=== PATIENT | male | born 1945 | race Hispanic/Latino ===

== ENCOUNTER 2018-02-15 17:18 | Inpatient (IN) | payer MEDICARE ==
--- NOTE | 2018-02-15 17:33 | ED PDOC ---
Arrival/HPI - General Historian: Patient - History of Present Illness Narrative History of Present Illness (Text): 02/15/18 17:31 72yo male with pmhx of hypertension, COPD bib EMS for complaint of right leg pain s/p trauma. Patient reports fall last week, while crossing the street and again today. States he fell while leaving the bathroom today, because of the pain on his right leg. He denies hitting his head, LOC, nausea, back pain, focal weakness, dizziness, visual changes, any other complaint. <Rosa Pugh A - Last Filed: 02/16/18 19:16> <Jhonatan Juarez - Last Filed: 02/17/18 15:25> - General Time Seen by Provider: 02/15/18 17:25 Past Medical History - Provider Review Nursing Documentation Reviewed: Yes - Infectious Disease Hx of Infectious Diseases: None - Cardiac Hx Hypertension: Yes - Pulmonary Hx Chronic Obstructive Pulmonary Disease (COPD): Yes - Integumentary Other/Comment: hx of cellulitis b/l legs, left heel brown dry 2cm x 1,5cm callous, right ball of foot 2 callouses 1cm round, dry skin to feet, hard thick dirty toenails, large abrasion to right foreheas and smaller abrasions to toop of head - Musculoskeletal/Rheumatological Hx Arthritis: Yes - Psychiatric Hx Depression: No Hx Emotional Abuse: No Hx Physical Abuse: No Hx Substance Use: No - Anesthesia Hx Anesthesia Reactions: No - Suicidal Assessment Feels Threatened In Home Enviroment: No <KeatonHappiness A - Last Filed: 02/16/18 19:16> Family/Social History - Physician Review Nursing Documentation Reviewed: Yes Family/Social History: Unknown Family HX Smoking Status: Current Some Days Smoker Hx Alcohol Use: No Hx Substance Use: No Hx Substance Use Treatment: No <uHappiness A - Last Filed: 02/16/18 19:16> Allergies/Home Meds <KeatonHappiness A - Last Filed: 02/16/18 19:16> <Jhonatan Juarez - Last Filed: 02/17/18 15:25> Allergies/Adverse Reactions: Allergies No Known Allergies Allergy (Verified 10/10/11 11:55) Home Medications: Home Meds Medication Instructions Recorded Confirmed Aspirin [Aspir 81] 81 mg PO DAILY 10/10/11 02/16/18 Review of Systems - Physician Review All systems were reviewed & negative as marked: Yes - Review of Systems Constitutional: Normal Eyes: Normal ENT: Normal Respiratory: Normal Cardiovascular: Normal Gastrointestinal: Normal Genitourinary Male: Normal Musculoskeletal: Arthralgias (Right leg pain) Skin: Normal Neurological: Normal Endocrine: Normal Hemo/Lymphatic: Normal Psychiatric: Normal <Diru,Happiness A - Last Filed: 02/16/18 19:16> Physical Exam Vital Signs Reviewed: Yes Temperature: Afebrile Blood Pressure: Normal Pulse: Regular Respiratory Rate: Normal Appearance: Positive for: Well-Appearing, Non-Toxic, Comfortable Pain Distress: None Mental Status: Positive for: Alert and Oriented X 3 - Systems Exam Head: Present: Atraumatic, Normocephalic Pupils: Present: PERRL Extroacular Muscles: Present: EOMI Conjunctiva: Present: Normal Mouth: Present: Moist Mucous Membranes Neck: Present: Normal Range of Motion Respiratory/Chest: Present: Clear to Auscultation, Good Air Exchange. No: Respiratory Distress, Accessory Muscle Use Cardiovascular: Present: Regular Rate and Rhythm, Normal S1, S2. No: Murmurs Abdomen: No: Tenderness, Distention, Peritoneal Signs Back: Present: Normal Inspection Upper Extremity: Present: Normal Inspection. No: Cyanosis, Edema Lower Extremity: Present: NORMAL PULSES, Tenderness (Proximal right thigh), Other (Right leg externally rotated). No: Edema, Normal ROM (Limited on flexion/abduction/adduction of right hip secondary to pain), Swelling Neurological: Present: GCS=15, CN II-XII Intact, Speech Normal Skin: Present: Warm, Dry, Normal Color. No: Rashes Psychiatric: Present: Alert, Oriented x 3, Normal Insight, Normal Concentration <Diru,Happiness A - Last Filed: 02/16/18 19:16> Vital Signs Temp Pulse Resp BP Pulse Ox 02/15/18 23:01 89 18 145/85 97 02/15/18 17:31 98.9 F 100 H 18 100 <Jhonatan Juarez L - Last Filed: 02/17/18 15:25> Medical Decision Making ED Course and Treatment: 02/15/18 17:34 72yo male bib EMS for right leg pain. His pain was controlled in emergency department with medication. B/L hip xray Right femur xray Head CT Tramadol will reassess 02/16/18 19:12 Hip xray - Right femoral neck fracture with mild displacement. Head CT - No acute finding Lab was ordered secondary to above finding for Surgical fixation Case was DW Dr. Fuentes and pt was admitted to her service. She requested Dr. Ahumada consult. Case was DW Dr. Ahumada and he states he will see pt on Saturday and Dr. fuentes was aware of this All result and plan was DW the pt and he agreed. <Diru,Happiness A - Last Filed: 02/16/18 19:16> - RAD Interpretation Radiology Orders: 02/15/18 17:48 FEMUR 1 VIEW RT [RAD] Stat Hip Bilateral [HIP MIN 3V W/ PELVIS RAIN] [RAD] Stat 02/15/18 17:49 HEAD W/O CONTRAST [CT] Stat 02/15/18 21:25 CHEST ONE VIEW [RAD] Stat - Medication Orders Current Medication Orders: Acetaminophen (Tylenol 325mg Tab) 650 mg PO Q6H PRN PRN Reason: Fever >100.4 F Albuterol/Ipratropium (Duoneb 3 Mg/0.5 Mg (3 Ml) Ud) 3 ml IH [id number] MYNOR Last Admin: 02/17/18 14:14 Dose: 3 ml Docusate Sodium (Colace) 100 mg PO BID MYNOR Heparin Sodium (Porcine) (Heparin) 5,000 units SC Q12 [facility]; Protocol Last Admin: 02/16/18 21:21 Dose: 5,000 units Subcutaneous Administrations Document 02/16/18 21:21 MP (Rec: 02/16/18 21:21 [id number]) Injection Site MAR Injection Site Left Abdomen Charges for Administration # of Subcutaneous Administrations 1 Metoprolol Tartrate (Lopressor) 12.5 mg PO BRKDIN [facility] Last Admin: 02/17/18 06:48 Dose: 12.5 mg Morphine Sulfate (Morphine) 4 mg IVP Q6H PRN PRN Reason: Pain, severe (8-10) Last Admin: 02/17/18 12:07 Dose: 4 mg MAR Pain Assessment Document 02/17/18 12:07 ANNE (Rec: 02/17/18 12:08 ANNE [id number]) Pain Reassessment Is this a pain reassessment? No Presence of Pain Presence of Pain Yes Pain Scale Used Protocol: [facility] Pain Scale Used Numeric Location Left, Right or Bilateral Right Pain Location Body Site Hip Description Description Intermittent Intensity of Pain at present 9 Aggravating Factors Exercise/Activity IVP Administration Document 02/17/18 12:07 ANNE (Rec: 02/17/18 12:08 JA [id number]) Charges for Administration # of IVP Administrations 1 Ondansetron HCl (Zofran Inj) 4 mg IVP Q6H PRN PRN Reason: Nausea/Vomiting Discontinued Medications Albuterol/Ipratropium (Duoneb 3 Mg/0.5 Mg (3 Ml) Ud) 3 ml IH STAT STA Stop: 02/15/18 21:37 Last Admin: 02/15/18 21:50 Dose: 3 ml Morphine Sulfate (Morphine) 3 mg IVP STAT STA Stop: 02/15/18 21:37 Last Admin: 02/15/18 21:50 Dose: 3 mg MAR Pain Assessment Document 02/15/18 21:50 JOL (Rec: 02/15/18 22:26 JOL [id number]) Pain Reassessment Is this a pain reassessment? No Sleep Is patient sleeping during reassessment? No Presence of Pain Presence of Pain Yes Pain Scale Used Protocol: [facility] Pain Scale Used Numeric Description Intensity of Pain at present 7 IVP Administration Document 02/15/18 21:50 JOL (Rec: 02/15/18 22:26 JOL [id number]) Charges for Administration # of IVP Administrations 1 Morphine Sulfate (Morphine) 3 mg IVP STAT STA Stop: 02/16/18 00:04 Last Admin: 02/16/18 00:14 Dose: 3 mg MAR Pain Assessment Document 02/16/18 00:14 MAD (Rec: 02/16/18 00:15 MAD [id number]) Pain Reassessment Is this a pain reassessment? Yes Presence of Pain Presence of Pain Yes Pain Scale Used Protocol: [facility] Pain Scale Used Numeric Location Left, Right or Bilateral Right Pain Location Body Site Hip Description Description Constant Intensity of Pain at present 8 Acceptable Level of Pain 3 Pain Behavior Moaning Restlessness Alleviating Factors/Management Medication Techniques Alleviating Factors Medication IVP Administration Document 02/16/18 00:14 MAD (Rec: 02/16/18 00:15 MAD [id number]) Charges for Administration # of IVP Administrations 1 Re-Assess: MAR Pain Assessment Document 02/16/18 01:14 [facility] (Rec: 02/16/18 03:58 MAD [id number]) Pain Reassessment Is this a pain reassessment? Yes Sleep Is patient sleeping during reassessment? Yes Morphine Sulfate (Morphine) 2 mg IVP Q6H PRN PRN Reason: severe pain Last Admin: 02/16/18 13:30 Dose: 2 mg MAR Pain Assessment Document 02/16/18 13:30 MCV (Rec: 02/16/18 13:31 MCV [id number]) Pain Reassessment Is this a pain reassessment? No Presence of Pain Presence of Pain Yes Pain Scale Used Protocol: PSCALES Pain Scale Used Numeric Location Left, Right or Bilateral Bilateral Pain Location Body Site Hip Description Description Constant IVP Administration Document 02/16/18 13:30 MCV (Rec: 02/16/18 13:31 MCV [id number]) Charges for Administration # of IVP Administrations 1 Tramadol HCl (Ultram) 50 mg PO STAT STA Stop: 02/15/18 17:50 Last Admin: 02/16/18 20:35 Dose: Not Given Non-Admin Reason: not done from previous shift <Jhonatan Juarez - Last Filed: 02/17/18 15:25> - PA / SHIP PURSER / Resident Statement / has reviewed & agrees with the documentation as recorded. <Jhonatan Juarez - Last Filed: 02/17/18 15:25> Disposition/Present on Arrival - Present on Arrival Any Indicators Present on Arrival: No History of DVT/PE: No History of Uncontrolled Diabetes: No Urinary Catheter: No History Surgical Site Infection Following: None - Disposition Have Diagnosis and Disposition been Completed?: Yes Disposition Time: 20:40 Patient Plan: Admission <Rosa Pugh - Last Filed: 02/16/18 19:16> <Jhonatan Juarez - Last Filed: 02/17/18 15:25> - Disposition Diagnosis: Hip fracture Disposition: HOSPITALIZED Patient Problems: Current Active Problems Problem Status Onset Hip fracture Acute Condition: STABLE
[2018-02-15 17:59] VITALS: BMI 17.2
[2018-02-15] MEDS ORDERED: Morphine 4 mg/ml ISec IVP STA (21:36)
[2018-02-15] MEDS ORDERED: Albuterol-Ipratrop 3 mg / 0.5 (3 ml) UD IH STA (21:36)
[2018-02-15] MEDS ORDERED: Morphine 4 mg/ml ISec ONE (21:39)
[2018-02-15 22:38] LABS: BASO # 0.03 K/mm3 (0.0-2.0); BASO % 0.5 % (0.0-3.0); EOS # 0.2 (0.0-0.7); EOS % 3.8 % (1.5-5.0); GRAN # 4.12 (1.4-6.5); GRAN % 68.2 % (50.0-68.0); HEMOGLOBIN 13.4 g/dL (14.0-18.0); LYMPH # 1.1 (1.2-3.4); LYMPH % 18.7 % (22.0-35.0); MEAN CELL VOLUME 88.5 fl (80.0-105.0); MEAN CORPUSCULAR HEMOGLOBIN 29.5 pg (25.0-35.0); MEAN CORPUSCULAR HGB CONC 33.3 g/dl (31.0-37.0); MEAN PLATELET VOLUME 10.2 fl (7.0-11.0); MONO # 0.5 (0.1-0.6); MONO % 8.8 % (1.0-6.0); RBC 4.54 10^6/uL (3.5-6.1)
[2018-02-15 22:45] LABS: PARTIAL THROMBOPLASTIN TIME 30.4 Seconds (25.1-36.5); PROTHROMBIN TIME 11.4 SECONDS (9.4-12.5)
[2018-02-16] MEDS ORDERED: Morphine 4 mg/ml ISec IVP STA (00:03)
--- NOTE | 2018-02-16 09:37 | CT ---
Date of service: 02/15/2018 PROCEDURE: CT HEAD WITHOUT CONTRAST. HISTORY: s/p trauma COMPARISON: None available. TECHNIQUE: Axial computed tomography images were obtained through the head/brain without intravenous contrast. Radiation dose: Total exam DLP = 1119 mGy-cm. This CT exam was performed using one or more of the following dose reduction techniques: Automated exposure control, adjustment of the mA and/or kV according to patient size, and/or use of iterative reconstruction technique. FINDINGS: HEMORRHAGE: No intracranial hemorrhage. BRAIN: No mass effect or edema. Chronic microvascular changes. Moderate atrophy. VENTRICLES: Unremarkable. No hydrocephalus. CALVARIUM: Unremarkable. PARANASAL SINUSES: Unremarkable as visualized. No significant inflammatory changes. MASTOID AIR CELLS: Unremarkable as visualized. No inflammatory changes. OTHER FINDINGS: The report concurs with the preliminary report IMPRESSION: No acute intracranial findings
--- NOTE | 2018-02-16 10:46 | RAD ---
Date of service: 02/15/2018 PROCEDURE: CHEST RADIOGRAPH, 1 VIEW HISTORY: admission COMPARISON: 03/25/2016 FINDINGS: LUNGS: The lungs have a hyper expanded appearance consistent with COPD. No focal infiltrates. No change PLEURA: No pneumothorax or pleural fluid seen. CARDIOVASCULAR: Normal. OSSEOUS STRUCTURES: No significant abnormalities. VISUALIZED UPPER ABDOMEN: Normal. OTHER FINDINGS: None. IMPRESSION: The lungs have a hyper expanded appearance consistent with COPD. No focal infiltrates. No change
--- NOTE | 2018-02-16 11:34 | RAD ---
Date of service: 02/15/2018 PROCEDURE: Bilateral hips and pelvis HISTORY: right hip pain COMPARISON: TECHNIQUE: Three views FINDINGS: There is a displaced subcapital hip fracture on the right side. There are no pelvic fractures. The left hip is intact IMPRESSION: Displaced subcapital hip fracture on the right
--- NOTE | 2018-02-16 11:36 | RAD ---
Date of service: 02/15/2018 PROCEDURE: Right femur HISTORY: leg pain s/p trauma COMPARISON: TECHNIQUE: Three views FINDINGS: There is a displaced subcapital hip fracture on the right. The remainder of the femur is unremarkable IMPRESSION: As above
[2018-02-16] MEDS ORDERED: Morphine 2 mg/ml ISec IVP PRN (12:52)
[2018-02-16] MEDS: Albuterol-Ipratrop 3 mg / 0.5 (3 ml) UD IH SCH ×2 (13:06→21:05)
[2018-02-16 13:26] LABS: ALB/GLOB RATIO 1.2 (1.1-1.8); ALBUMIN 3.6 g/dL (3.0-4.8); ALT/SGPT 31 U/L (7-56); AST/SGOT 34 U/L (17-59); BLOOD UREA NITROGEN 12 mg/dL (7-21); CALCIUM 9.3 mg/dL (8.4-10.5); GFR NON-AFRICAN AMERICAN > 60
--- NOTE | 2018-02-16 16:17 | CARD ---
APPROVED REPORT Date of service: 02/16/2018 EKG Measurement Heart [id number] <Conclusion> Normal sinus rhythm Left axis deviation Nonspecific T wave abnormality Possible inferior infarct, age indetermined Abnormal ECG
[2018-02-16] MEDS: Morphine 4 mg/ml ISec IVP PRN (20:34)
[2018-02-17] MEDS: Albuterol-Ipratrop 3 mg / 0.5 (3 ml) UD IH SCH ×4 (01:10→19:30)
[2018-02-17] MEDS: Morphine 4 mg/ml ISec IVP PRN ×2 (05:39→12:07)
[2018-02-17 08:53] LABS: HEMOGLOBIN 12.1 g/dL (14.0-18.0); MEAN CORPUSCULAR HEMOGLOBIN 29.6 pg (25.0-35.0); MEAN CORPUSCULAR HGB CONC 33.6 g/dl (31.0-37.0); MEAN PLATELET VOLUME 9.8 fl (7.0-11.0); RBC 4.09 10^6/uL (3.5-6.1); RED CELL DISTRIBUTION WIDTH 11.9 % (11.5-14.5); WHITE BLOOD COUNT 6.5 10^3/ul (4.5-11.0)
[2018-02-17 09:07] LABS: BLOOD UREA NITROGEN 17 mg/dL (7-21); GFR NON-AFRICAN AMERICAN > 60
[2018-02-17 09:08] LABS: ALB/GLOB RATIO 1.1 (1.1-1.8); ALBUMIN 3.2 g/dL (3.0-4.8); ALT/SGPT 24 U/L (7-56); AST/SGOT 27 U/L (17-59); CALCIUM 8.5 mg/dL (8.4-10.5)
--- NOTE | 2018-02-17 11:56 | PN ---
DATE: 02/16/2018 SUBJECTIVE: This 72-year-old male was examined at his bedside and this case was reviewed in detail with his nurse, Xuan La, registered nurse. The patient is at bedrest, awaiting orthopedic evaluation by Dr. Ahumada. He sustained a right hip fracture on a trip and fall last week, but continued to walk on the limb. He presented to [facility] late last evening complaining of intractable hip pain. He was noted to have a right displaced hip fracture. At present, he states the pain is unbearable and is requesting an increase in strength of his morphine injection. PHYSICAL EXAMINATION: VITAL SIGNS: Temperature is 98.9, respirations 18, pulse 100 and blood pressure 141/80 with a pulse ox of 96% on room air. HEENT: Head: Normocephalic, atraumatic. Eyes: No icterus. Ears: Clear. Throat: Noninjected. NECK: Supple. HEART: Regular S1, S2. LUNGS: Have occasional rhonchi that clear with coughing. ABDOMEN: Soft. EXTREMITIES: No edema. Right leg is shortened and externally rotated. VASCULAR: Legs warm to touch. PSYCHOLOGICAL: Alert and oriented x3. LABORATORY DATA: Sodium 137, K 3.9, chloride 98, bicarb 30, BUN 12, creatinine 0.6, random blood sugar 65, calcium 9.3. Bilirubin 0.9, AST 34, ALT 31, alkaline phosphatase 88. PT/INR 1, PTT 30.4. White count 6000, hemoglobin 13.4, hematocrit 40.2 and platelets 158,000. EKG was reviewed. It showed normal sinus rhythm with nonspecific ST-T wave changes. Chest x-ray shows COPD and no infiltrate or effusion. Head CT showed no infarct and hip and femur x-rays are consistent with a right subcapital displaced hip fracture. IMPRESSION: A 72-year-old male status post trip and fall 1 week ago where he sustained a right hip fracture. He continued to walk on the limb, but presented to [facility] 1 week later with intractable pain. As discussed with his nurse, we will increase his morphine to 4 mg IV stat and then every 6 hours p.r.n. severe pain while continuing Tylenol 650 p.o. every 6 hours p.r.n. [id number] pain or temperature greater than 101. He continues on dual nebulizer inhalational therapy every 6 hours, heparin 5000 units subcu every 12, Zofran 4 mg IV every 6 hours p.r.n. nausea and vomiting and as instructed to the patient and nursing, he has been ordered to do incentive spirometry every 1 hour. He is wearing nasal O2 2 liters p.r.n. He is awaiting orthopedic surgical evaluation and is medically stable for necessary OR, hopefully 02/17/2018. All of the above was reviewed in detail with the patient and nursing. All questions were answered. Tiffanie Fuentes MD MTDD
[2018-02-17 14:00] LABS: URINE BILIRUBIN NEGATIVE (NEGATIVE); URINE BLOOD LARGE (NEGATIVE); URINE GLUCOSE (UA) NEGATIVE (NEGATIVE); URINE LEUKOCYTE ESTERASE NEGATIVE Leu/uL (NEGATIVE); URINE PROTEIN NEGATIVE mg/dL (<30 mg/dL)
[2018-02-17 14:01] LABS: URINE APPEARANCE TURBID (CLEAR); URINE COLOR YELLOW (YELLOW)
[2018-02-17 14:03] LABS: URINE RBC TNTC /hpf (0-2); URINE WBC NEGATIVE /hpf (0-6)
--- NOTE | 2018-02-17 14:36 | CARD ---
APPROVED REPORT Date of service: 02/17/2018 EXAM: Two-dimensional and M-mode echocardiogram with Doppler and color Doppler. INDICATION Pre-Op 2D DIMENSIONS Left Atrium (2D)3.4 (1.6-4.0cm)IVSd1.4 (0.7-1.1cm) LVDd3.5 (3.9-5.9cm)PWd1.1 (0.7-1.1cm) LVDs2.6 (2.5-4.0cm)FS (%) 25.1 % LVEF (%)50.7 (>50%) Aortic Valve AoV Peak Lpgodtzc084.0cm/Ismael Peak GR.11mmHgLVOT Peak Yszfgksj32.1cm/s LVOT VTI13.60cm Mitral Valve MV E Ivthyijl81.9cm/sMV A Pyejtvbt442.0cm/sE/A ratio0.8 TDI E/Lateral E'0.0E/Medial E'0.0 Tricuspid Valve TR Peak Uiuxesll922jr/sRAP ZJJXBCAE53heDlRI Peak Gr.11mmHg LLLO88yoSe LEFT VENTRICLE The left ventricle is normal size. Septum Shows Mild Hypertrophy. Normal LV Systolic Function. Ej.Fr: 55%. Transmitral Doppler flow pattern is Grade I-abnormal relaxation pattern. RIGHT VENTRICLE The right ventricle is normal size. The right ventricular systolic function is normal. ATRIA The left atrium size is normal. The right atrium size is normal. AORTIC VALVE Aortic Valve Thickened and is Not Well Seen. MITRAL VALVE Mitral Valave is Thickened but Opening is Normal. TRICUSPID VALVE The tricuspid valve is normal in structure. <Conclusion> The left ventricle is normal size. Septum Shows Mild Hypertrophy. Normal LV Systolic Function. Ej.Fr: 55%. Transmitral Doppler Flow Pattern is Grade I-Abnormal Relaxation Pattern. The right ventricle is normal size. The right ventricular systolic function is normal. The left atrium size is normal. The right atrium size is normal. Aortic Valve Thickened and is Not Well Seen. Mitral Valave is Thickened but Opening is Normal. The tricuspid valve is normal in structure.
--- NOTE | 2018-02-17 16:35 | HP ---
DATE OF EXAM: 02/15/2018. SUMMARY: This 72-year-old male was examined in the [facility] emergency room on the evening of Saturday02/15/2018. His case was reviewed in detail with nurse practitioner, Gamal Pugh as well as his emergency room nurse as well. The patient states approximately 1 week ago, he tripped and fell while crossing the street and sustained pain to his right hip and leg. He did not seek medical evaluation at that time, but continued to walk on his injured leg. When the pain became so severe, he could not withstand it any longer, he came to the [facility] this evening where he was noted to have a shortened limb with external rotation and on hip x-ray, an obvious fracture. He is being admitted for further evaluation of the above. PAST MEDICAL HISTORY: His past medical history is extensive and includes atherosclerotic heart disease, status post history of congestive heart failure and cardiomyopathy, hyperlipidemia, anxiety neurosis, degenerative arthritis. It should be noted that this patient has not been under any medical followup for almost 2 years. MEDICATIONS: When I questioned the patient what were his latest medications, he stated Ecotrin 81 mg p.o. daily. ALLERGIES: HE DENIES ANY KNOWLEDGE TO ALLERGIES TO MEDICATION. SOCIAL HISTORY: He is a persistent cigarette smoker. He is a nondrinker. He is a non IV drug misuser. He is a psychiatrically disabled gentleman. FAMILY HISTORY: Noncontributory. REVIEW OF SYSTEMS: On constitutional review, he denied any fever or chills. Head review: No head trauma. Eye review: No change in visual acuity. Ear review: No hearing loss. Throat review: No swallowing difficulty. Neck review: No stiffness. Cardiac review: As per HPI. Pulmonary: Chronic obstructive pulmonary disease. GI: No hematemesis. No melena. : No dysuria. Skin: No rash. Vascular: No claudication. Psychological: Chronic anxiety. Neurological: No knowledge of stroke. PHYSICAL EXAMINATION: VITAL SIGNS: Temperature was 98.9, respirations 18, pulse 100, blood pressure 145/85. Pulse ox 100% on room air. HEENT: Head normocephalic, atraumatic. Eyes: No icterus. Ears: Clear. Throat: Noninjected. NECK: Supple. HEART: Regular S1, S2. No pathological rubs, murmurs or gallops. LUNGS: Clear to auscultation. ABDOMEN: Soft. EXTREMITIES: No edema. SKIN: Without rash. NEUROLOGICAL: Grossly intact. PSYCHOLOGICAL: Alert. VASCULAR: Legs warm to touch. His right leg could not be examined due to the fact that it was shortened and externally rotated secondary to hip fracture. LABORATORY DATA: White count 6000, hemoglobin 13.4, hematocrit 40.2, platelets 158,000. PT/INR 1, PTT 30.4. Sodium 130. X-rays were reviewed. His right femur x-ray revealed a displaced subcapital hip fracture on the right. Pelvic x-rays were reviewed. There were no pelvic fractures. His left hip was intact. His head CT was reviewed. It showed no evidence of intracranial hemorrhage. No mass, no infarct, no edema. Sinuses were unremarkable. There were no significant inflammatory changes. Chest x-ray was reviewed. It showed the lungs were hyperexpanded consistent with COPD. There were no focal infiltrates, no pneumothorax, no pneumonia, no evidence of congestive heart failure, no pleural effusion. IMPRESSION: A 72-year-old male with a trip and fall where he sustained a right hip fracture over a weeks ago, but did not seek medical attention and continued to walk on this leg, which now has evidence of a displaced subcapital hip fracture on the right with comorbidities of chronic obstructive pulmonary disease, atherosclerotic heart disease and chronic anxiety neurosis. PLAN: My plans are to admit this patient to the medical [place]. He is ordered to have dual nebulizer therapy every 6 hours, heparin 5000 units subcu every 12, Lopressor 12.5 mg p.o. b.i.d., morphine 3 mg IV every 6 hours p.r.n. severe pain, Tylenol 650 p.o. every 6 hours p.r.n. [id number] pain and Zofran 4 mg IV every 6 hours p.r.n. nausea and vomiting. He is ordered to have a heart-healthy diet. A consultation with Dr. Falcon from Orthopedics is pending and the patient will need to go to the OR for fracture repair when evaluated by Dr. Falcon. Greater than 75 minutes was spent in the care, management, review of labs, orders, x-rays, outlining of medical intervention for this patient today and discussion of his care with emergency room nursing as well as this patient. All questions were answered. Tiffanie Fuentes MD [facility]
[2018-02-17] MEDS ORDERED: Bupivacaine 0.5% 50 ML IJ ONE (16:41)
[2018-02-17] MEDS ORDERED: Bupivacaine Liposomal Inj 20 ml ONE (16:41)
--- NOTE | 2018-02-17 17:40 | CON ---
DATE: 02/17/2018 REASON FOR CONSULT: Right hip fracture. HISTORY OF PRESENT ILLNESS: This is a 72-year-old gentleman, who was admitted on 02/15/2018 with complaints of right hip pain and inability to ambulate. According to the patient, he fell approximately a week prior to presentation and had persistent pain. Subsequently, went to the emergency room with worsening pain. He states he did have a fall. He denies any other injuries. PHYSICAL EXAMINATION: GENERAL: This is a gentleman in no apparent distress. He is awake, alert and oriented. EXTREMITIES: Evaluation of the right lower extremity shows some slightly shortened and externally rotated right lower extremity. He has pain with passive range o f motion of the right hip. Grossly, he is neurovascularly intact. His thigh and calf are soft and nontender. Evaluation of the left lower extremity shows he has no pain with passive or active range of motion of the left lower extremity. He has no deformity. No swelling or crepitus is appreciated. Neurovascularly, he is intact. IMAGING: X-rays of the right hip and pelvis show a displaced right femoral neck fracture. IMPRESSION: Right femoral neck fracture. PLAN: At this point, recommendation will be for right hip hemiarthroplasty. The risks and benefits were discussed with the patient and he wants to proceed with surgery. We are going to have the Medical Service obtain the necessary medical clearance and preoperative evaluation and plan on doing surgery later today. Jung Falcon MD
[2018-02-17] MEDS ORDERED: Propofol 10 mg/ml Inj (20 ML) ONE ×2 (18:41→20:46)
[2018-02-17] MEDS ORDERED: Midazolam 2 MG/2 ML VIAL ONE (18:42)
[2018-02-17] MEDS ORDERED: Rocuronium 10 mg/ml (5 ml) ONE ×2 (18:43→19:34)
[2018-02-17] MEDS ORDERED: Sevoflurane - Inhalation Anesthetic Liq (250 ml) ONE (19:34)
[2018-02-17] MEDS ORDERED: HYDROmorphone 0.5 mg/0.5 ml ISec IVP PRN (19:41)
[2018-02-17] MEDS ORDERED: Lactated Ringer's 1,000 ML IV SCH (19:45)
[2018-02-17] MEDS ORDERED: Neostigmine Methylsulfate 3mg/3ml Syringe IV ONE (19:45)
[2018-02-17] MEDS ORDERED: Desflurane Inhalation Anesthetic Liq (240 ml) ONE (20:14)
[2018-02-17] MEDS ORDERED: Esmolol 100 mg/10ml Inj IV ONE (20:33)
[2018-02-17] MEDS ORDERED: HYDROmorphone 1 mg/ml ISec ONE (21:29)
[2018-02-17] MEDS ORDERED: Sodium Chloride 0.9% 1,000 ML IV SCH (21:30)
--- NOTE | 2018-02-17 22:54 | OP ---
PROCEDURE DATE: 02/17/2018 PREOPERATIVE DIAGNOSIS: Right femoral neck fracture. POSTOPERATIVE DIAGNOSIS: Right femoral neck fracture. PROCEDURE: Right hip hemiarthroplasty. SURGEON: Jung Falcon MD CUSTOMER SERVICE ENGINEER: Dr. Falcon is assisted by Tho Chapin, the physician physician assistant surgery. Ms. Chapin was currently present throughout the entire case and assisted in the patient's positioning, retraction, manipulation of the extremity during the procedure as well as wound closure. ANESTHESIA: General. COMPLICATIONS: None. ESTIMATED BLOOD LOSS: 75 mL. IMPLANT: Biomet bipolar hemiarthroplasty. INDICATIONS FOR PROCEDURE: This is a 72-year-old gentleman who presented status post fall approximately one week ago with complaints of right hip pain and inability to ambulate. Clinical and radiographic examination consistent with a right hip femoral neck fracture. Recommendation was for a right hip hemiarthroplasty once the patient was medically optimized. The risks, benefits, and alternatives for procedure were discussed with the patient including limb length discrepancy and instability and informed consent was obtained. OPERATIVE PROCEDURE: After the surgical site was identified and verified in the preoperative holding area, the patient was taken to the operating room and placed supine on the operating room table. After administration of general anesthesia, the patient received 2 g of Ancef IV. The patient was positioned in the lateral decubitus position with the right hip up towards the ceiling. Care was taken to make sure all bony prominences and nerves were well padded and protected. Axillary roll was placed into the left axilla. Venodyne boot was placed on the nonoperative extremity and the right lower extremity was prepped and draped in the usual sterile fashion. Bony landmarks were identified about the right hip and approximately 10 cm curvilinear incision was made over the proximal femur. Soft tissue was dissected sharply down to the fascia, the fascia was incised and a Charnley retractor was placed. Short external rotators were identified, tagged, and resected off of the proximal femur. T-type capsulotomy was performed and the hip was dislocated. A Corkscrew was used to remove the femoral head and this was just passed off the field and measured. Revision femoral neck was performed and at this point, acetabulum was inspected for any debris or fractures, satisfied. The medullary canal of the proximal femur was reamed and broached sequentially to allow for a 12 mm Press-Fit stem. Care was taken to maintain proper femoral version. Once the trial stem was in place, the calcar was planed and a trial neck and head was placed. The hip was reduced and was taken through range of motion, and was noted to be stable with approximately equal limb lengths. At this point, the hip was dislocated and the trial implants were removed. The hip joint was pulse lavaged with antibiotic saline solution and the bony surfaces were dried. The actual stem was then impacted into place being careful to maintain the proper version. The actual head was then impacted over the stem and the hip was once again reduced, taken through a range of motion and was noted to be stable at approximately equal limb lengths. At this point, our capsule was repaired to bone using #1 Vicryl suture, the short external rotators were repaired using #1 Vicryl suture, the deep fascia was closed using #1 Vicryl suture, subcutaneous tissue was closed using 2-0 Vicryl suture and the skin was closed using amanda. A sterile dressing was applied and hip abduction pillow was placed. The patient was transferred supine, awakened, and taken to recovery room in stable condition. Jung Falcon MD
[2018-02-18] MEDS: Albuterol-Ipratrop 3 mg / 0.5 (3 ml) UD IH SCH ×5 (00:24→20:26)
[2018-02-18] MEDS: Morphine 4 mg/ml ISec IVP PRN ×2 (01:39→11:51)
[2018-02-18] MEDS: ceFAZolin 2 GM in Sodium Chloride 0.9% 100 ML IVPB SCH ×2 (02:49→11:00)
[2018-02-18 08:20] LABS: HEMOGLOBIN 11.2 g/dL (14.0-18.0); MEAN CELL VOLUME 89.1 fl (80.0-105.0); MEAN CORPUSCULAR HEMOGLOBIN 28.9 pg (25.0-35.0); MEAN CORPUSCULAR HGB CONC 32.5 g/dl (31.0-37.0); MEAN PLATELET VOLUME 10.2 fl (7.0-11.0); RBC 3.87 10^6/uL (3.5-6.1); RED CELL DISTRIBUTION WIDTH 12.1 % (11.5-14.5); WHITE BLOOD COUNT 6.5 10^3/ul (4.5-11.0)
[2018-02-18 08:34] LABS: ALBUMIN 2.9 g/dL (3.0-4.8); ALT/SGPT 30 U/L (7-56); AST/SGOT 36 U/L (17-59); BLOOD UREA NITROGEN 17 mg/dL (7-21); CALCIUM 8.2 mg/dL (8.4-10.5); GFR NON-AFRICAN AMERICAN > 60
--- NOTE | 2018-02-18 09:18 | RAD ---
Date of service: 02/17/2018 PROCEDURE: Pelvis and right hip HISTORY: pt in pacu s/p bipolar COMPARISON: TECHNIQUE: Two views portable FINDINGS: There is a right hip prosthesis in satisfactory position. There are no complicating factors IMPRESSION: As above
[2018-02-18] MEDS ORDERED: Cholecalciferol 1,000 INTLU TAB PO SCH ×3 (10:00)
[2018-02-18] MEDS: Multivitamin With Minerals Tab PO SCH (10:01)
[2018-02-18] MEDS ORDERED: Ergocalciferol 50,000 Intl Units Cap PO SCH (11:15)
[2018-02-18] MEDS: ceFAZolin IV 2 gm in 50 mL D5W IVPB SCH ×2 (11:33→18:30)
--- NOTE | 2018-02-18 14:44 | CP.PCM.PN ---
Subjective - Date & Time of Evaluation Date of Evaluation: 02/18/18 Time of Evaluation: 14:42 - Subjective Subjective: Pt awake, alert. Pt had to have matos reinserted after failing a voiding trial. Denies significant pain. Tmax 100.5, Tnow 98.9 RLE: abduction pillow in place NVI distally dressing clean thigh and calf soft Hg 11.2 WBC 6.5 xray: r hip implant in good position POD#1 PT wbat RLE resume DVT prophylaxis d/c planning Objective - Vital Signs/Intake and Output Vital Signs (last 24 hours): Temp Pulse Resp BP Pulse Ox 100.5 F H 194 H 21 124/67 93 L 02/18/18 06:00 02/18/18 06:00 02/18/18 06:00 02/18/18 10:01 02/18/18 06:00 Intake and Output: 02/18/18 02/18/18 06:59 18:59 Intake Total 120 Output Total 390 Balance -270 - Medications Medications: Current Medications Acetaminophen (Tylenol 325mg Tab) 650 mg PO Q6H [facility] Last Admin: 02/18/18 02:48 Dose: 650 mg Albuterol/Ipratropium (Duoneb 3 Mg/0.5 Mg (3 Ml) Ud) 3 ml IH [id number] [facility] Last Admin: 02/18/18 13:17 Dose: Not Given Calcium Carbonate (Oscal) 500 mg PO DAILY [facility] Last Admin: 02/18/18 11:50 Dose: 500 mg Docusate Sodium (Colace) 100 mg PO BID [facility] Last Admin: 02/18/18 11:34 Dose: Not Given Ergocalciferol (Drisdol 50,000 Intl Units Cap) 1 cap PO Q7D [facility] Last Admin: 02/18/18 11:50 Dose: 1 cap Heparin Sodium (Porcine) (Heparin) 5,000 units SC Q12 [facility]; Protocol Last Admin: 02/16/18 21:21 Dose: 5,000 units Cefazolin Sodium/Dextrose (Ancef Iv 2 Gm Duplex) 2 gm in 50 mls @ 50 mls/hr IVPB Q8H [facility] Last Admin: 02/18/18 11:33 Dose: 50 mls/hr Metoprolol Tartrate (Lopressor) 12.5 mg PO BRKDIN [facility] Last Admin: 02/18/18 10:01 Dose: 12.5 mg Morphine Sulfate (Morphine) 4 mg IVP Q4H PRN PRN Reason: Pain, severe (8-10) Last Admin: 02/18/18 11:51 Dose: 4 mg Multivitamins/Minerals (Therapeutic-M Tab) 1 tab PO DAILY [facility] Last Admin: 02/18/18 10:01 Dose: 1 tab Ondansetron HCl (Zofran Inj) 4 mg IVP Q6H PRN PRN Reason: Nausea/Vomiting Last Admin: 02/18/18 11:51 Dose: 4 mg Tamsulosin HCl (Flomax) 0.4 mg PO DAILY [facility] - Labs Labs: 02/18/18 08:00 02/18/18 08:00 PT 11.4 SECONDS (9.4-12.5) 02/15/18 21:50 INR 1.00 02/15/18 21:50 APTT 30.4 Seconds (25.1-36.5) 02/15/18 21:50
--- NOTE | 2018-02-18 14:48 | PN ---
DATE: 02/18/2018 SUBJECTIVE: This 72-year-old male was examined at his bedside in room 572, bed 2. This case was reviewed in detail with nurse practitioner, Franky Soto as well as nurse, Echo Graves, registered nurse. The patient is status post his right hip hemiarthroplasty under the direction of Dr. Jung Falcon, Orthopedics on the afternoon of 02/17/2018. Postoperatively, the patient has had a low-grade temperature and today had a T-max of 100.5. Also reported by nursing staff was gross hematuria after his Reyes catheter was removed and on bladder scanning, the patient had urinary retention of over 650 mL of urine. The nurse was unable to replace the urinary catheter and as discussed with urologist, Dr. Harmeet Motta, the house physician will attempt to place a 16 Coude catheter at this time. The patient is denying any chest pain or shortness of breath, and is complaining of expected postoperative hip pain. PHYSICAL EXAMINATION: VITAL SIGNS: Temperature is 100.5, respirations 21, pulse 66, and blood pressure 124/67 with a pulse ox of 93% on 2 L nasal O2. HEENT: Head: Normocephalic, atraumatic. Eyes: No icterus. Ears: Clear. Throat: Noninjected. NECK: Supple. HEART: Regular, S1 and S2. LUNGS: With occasional rhonchi that clear with coughing. ABDOMEN: Soft. EXTREMITIES: No edema. SKIN: Without rash. NEUROLOGIC: Deconditioned. VASCULAR: Legs warm to touch. PSYCHOLOGIC: Chronic anxiety. LABORATORY DATA: Sodium 135, K 4.2, chloride 100, bicarb 28. BUN 17, creatinine 0.7. Random blood sugar 84. Bilirubin 0.5, AST 36, ALT 30, and alk phos 67. White count 6500, hemoglobin 11.2, hematocrit 34.5, platelets 170,000. Vitamin D 25-hydroxy level was less than 12.8, low. A 2-D echocardiography from 02/17/2018, was reviewed. It showed left ventricle normal in size with a systolic function of 55% ejection fraction with normal left atrial size, thickened aortic valve, thickened mitral valve, and normal tricuspid valve. Right pelvic and hip x-rays postoperatively were reviewed showing a right hip prosthesis in satisfactory position with no complicating factors. IMPRESSION: This is a 72-year-old male status post right hip hemiarthroplasty, status post a trip and fall a week ago, now with postoperative gross hematuria and urinary retention with comorbidities of chronic stable atherosclerotic heart disease, chronic obstructive pulmonary disease, vitamin D deficiency, degenerative arthritis, chronic smoking history and post operative anemia. PLAN: At present is to continue Ancef 2 g IV every 8 hours under the direction of Dr. Falcon, Colace 100 mg p.o. b.i.d., Duo nebulizer inhalational therapy every 6 hours. Heparin 5000 units subcu every 12 hours is currently on hold, but I will ask the nurse to check with Dr. Falcon when it should be resumed. Lopressor 12.5 mg p.o. b.i.d., morphine 4 mg IV every 4 hours p.r.n. severe pain, Os-Donald will be discontinued and the patient will have vitamin D 50,000 international units weekly. He is ordered to have Zofran 4 mg IV every 6 hours p.r.n. nausea and vomiting, incentive spirometry every 1 hour. Heart-healthy soft bland diet. Sequential compression antiembolism stockings are in place. He is ordered to have a physical therapy evaluation and ultimate plan will be discharged to subacute rehab when medically stable. He will require serial labs and iron will be instituted when the patient is ambulatory to replace his blood loss in the OR. All of the above was discussed with the patient, Nursing, Dr. Motta, and Orthopedics. Greater than 35 minutes was spent in the care management, review of labs, orders and x-rays. All questions were answered. Tiffanie Fuentes MD [facility]
--- NOTE | 2018-02-18 17:00 | PN ---
DATE: 02/17/2018 SUBJECTIVE: This 72-year-old male was examined at his bedside on 02/17/2018. This case was reviewed in detail with nurse, Joe Burnette, registered nurse and addiction social worker, Nava Bautista. The patient remains at bedrest in the setting of right hip fracture that is in need of repair. The patient is agreeable to subacute rehab at the [facility] in [place], [place] when medically stable. PHYSICAL EXAMINATION: GENERAL: The patient denies any fever, chills, chest pain or shortness of breath and is being readied for the OR later this afternoon. VITAL SIGNS: Temperature 98.8, respirations 18, pulse 81 and blood pressure 129/82 with a pulse ox of 94% on room air. HEENT: Head: Normocephalic, atraumatic. Eyes: No icterus. Ears: Clear. Throat: Noninjected. NECK: Supple. HEART: Regular S1, S2. No pathological rubs, murmurs or gallops. LUNGS: Clear to auscultation. ABDOMEN: Soft. EXTREMITIES: No edema. Right leg was externally rotated and shorter than his left. VASCULAR: Legs warm to touch. PSYCHOLOGICAL: Alert and anxious. NEURO: Deconditioned. LABORATORY DATA: White count 6500, hemoglobin 12.1, hematocrit 36, platelets 174,000. PT/INR 1, PTT 30.4. Sodium 134, K 4.2, chloride 98, bicarb 30, BUN 17, creatinine 0.7, random blood sugar 118, calcium 8.5, bilirubin 0.5, AST 27, ALT 24, alk phos 70. EKG was reviewed, it showed normal sinus rhythm with nonspecific ST-T wave changes. Chest x-ray was reviewed, it showed COPD with no CHF, no effusion, no pneumothorax, no infiltrate. IMPRESSION AND PLAN: This is a 72-year-old male status post trip and fall approximately 1 week ago with a right subcapital displaced hip fracture in need of surgical repair, although the patient remains in increased risk for surgery given his multiple comorbidities including chronic obstructive pulmonary disease, atherosclerotic heart disease, history of congestive heart failure in the past. He is in need of urgent repair for his hip fracture and is medically cleared for the above. He has been started on Lopressor 12.5 mg p.o. b.i.d. perioperatively and will be monitored cautiously postoperatively. He is tolerating dual nebulizer therapy and is ordered to receive Colace 100 mg p.o. b.i.d. to prevent obstipation and is ordered to receive morphine 4 mg IV every 4 hours p.r.n. severe pain. Based on his clinical progress, additional diagnostic testing and workup will be entertained as discussed with Social Service. The patient will need subacute rehab postoperatively and this was reviewed with him as well as nursing. Greater than 35 minutes was spent in the care management, review of labs, orders and x-rays and clearing this patient for the OR today. All questions were answered. Tiffanie Fuentes MD MTDD
[2018-02-19] MEDS: Albuterol-Ipratrop 3 mg / 0.5 (3 ml) UD IH SCH ×4 (03:15→20:40)
[2018-02-19 07:56] LABS: HEMOGLOBIN 9.7 g/dL (14.0-18.0); MEAN CELL VOLUME 89.5 fl (80.0-105.0); MEAN CORPUSCULAR HGB CONC 32.4 g/dl (31.0-37.0); RBC 3.34 10^6/uL (3.5-6.1); WHITE BLOOD COUNT 4.8 10^3/ul (4.5-11.0)
[2018-02-19 08:18] LABS: ALB/GLOB RATIO 0.9 (1.1-1.8); ALBUMIN 2.5 g/dL (3.0-4.8); ALT/SGPT 24 U/L (7-56); AST/SGOT 34 U/L (17-59); BLOOD UREA NITROGEN 19 mg/dL (7-21); CALCIUM 8.1 mg/dL (8.4-10.5); GFR NON-AFRICAN AMERICAN > 60
--- NOTE | 2018-02-19 09:34 | CP.PCM.PN ---
Subjective - Date & Time of Evaluation Date of Evaluation: 02/19/18 Time of Evaluation: 09:31 - Subjective Subjective: POD#2. Patient laying in bed. Denies significant pain. Reyes still in. Hip abduction pillow in place VSS WBC 4.8 Hgb 9.7 R hip: Incision clean and intact and dry. No erythema or drainage. Rand intact. Incision clean and new dressing applied. Thigh and calf soft and nontender. NVI distally POD# 2 s/p R hip rachel Cont DVt prophylaxis Cont PT Cont hip abduction pillow Recommend subacute rehab facility Will f/u with patient in Dr. Falcon's office 2 weeks Objective - Vital Signs/Intake and Output Vital Signs (last 24 hours): Temp Pulse Resp BP Pulse Ox 98.1 F 77 18 115/66 96 02/19/18 06:00 02/19/18 06:00 02/19/18 06:00 02/19/18 06:00 02/19/18 06:00 Intake and Output: 02/19/18 02/19/18 06:59 18:59 Intake Total 800 Output Total 1050 Balance -250 - Medications Medications: Current Medications Acetaminophen (Tylenol 325mg Tab) 650 mg PO Q6H [facility] Last Admin: 02/18/18 22:20 Dose: 650 mg Albuterol/Ipratropium (Duoneb 3 Mg/0.5 Mg (3 Ml) Ud) 3 ml IH [id number] [facility] Last Admin: 02/19/18 07:27 Dose: 3 ml Apixaban (Eliquis) 2.5 mg PO BID [facility]; Protocol Last Admin: 02/18/18 18:04 Dose: 2.5 mg Calcium Carbonate (Oscal) 500 mg PO DAILY [facility] Last Admin: 02/18/18 11:50 Dose: 500 mg Docusate Sodium (Colace) 100 mg PO BID [facility] Last Admin: 02/18/18 18:04 Dose: 100 mg Ergocalciferol (Drisdol 50,000 Intl Units Cap) 1 cap PO Q7D [facility] Last Admin: 02/18/18 11:50 Dose: 1 cap Cefazolin Sodium/Dextrose (Ancef Iv 2 Gm Duplex) 2 gm in 50 mls @ 50 mls/hr IVPB Q8H [facility] Last Admin: 02/18/18 18:30 Dose: 50 mls/hr Metoprolol Tartrate (Lopressor) 12.5 mg PO BRKDIN [facility] Last Admin: 02/18/18 18:05 Dose: 12.5 mg Morphine Sulfate (Morphine) 4 mg IVP Q4H PRN PRN Reason: Pain, severe (8-10) Last Admin: 02/18/18 11:51 Dose: 4 mg Multivitamins/Minerals (Therapeutic-M Tab) 1 tab PO DAILY [facility] Last Admin: 02/18/18 10:01 Dose: 1 tab Ondansetron HCl (Zofran Inj) 4 mg IVP Q6H PRN PRN Reason: Nausea/Vomiting Last Admin: 02/18/18 11:51 Dose: 4 mg Tamsulosin HCl (Flomax) 0.4 mg PO DAILY [facility] Last Admin: 02/18/18 18:05 Dose: 0.4 mg - Labs Labs: 02/19/18 07:15 02/19/18 07:15 PT 11.4 SECONDS (9.4-12.5) 02/15/18 21:50 INR 1.00 02/15/18 21:50 APTT 30.4 Seconds (25.1-36.5) 02/15/18 21:50
[2018-02-19] MEDS ORDERED: Cholecalciferol 1,000 INTLU TAB PO SCH (10:00)
[2018-02-19] MEDS: Multivitamin With Minerals Tab PO SCH (10:27)
[2018-02-19] MEDS: Morphine 4 mg/ml ISec IVP PRN (10:28)
--- NOTE | 2018-02-19 13:44 | PN ---
DATE: 02/19/2018 SUBJECTIVE: This 72-year-old male was examined at his bedside and this case was reviewed in detail with himself; his nurse, Echo Graves physical therapist, Negrito Rivera, physical therapist. The patient remains weak and deconditioned. He denies any fever, chills, chest pain or shortness of breath. He is having expected right postoperative hip pain and has had no further hematuria since the placement of a 16-gauge coude catheter. PHYSICAL EXAMINATION: VITAL SIGNS: At present, his temperature is 98.1, respirations 18, pulse 77 and blood pressure 115/66 with a pulse ox of 96% on room air. HEENT: Head normocephalic, atraumatic. Eyes: No icterus. Ears: Clear. Throat: Noninjected. NECK: Supple. HEART: Regular S1, S2. LUNGS: Clear. ABDOMEN: Soft. EXTREMITIES: No edema. SKIN: Without rash. NEUROLOGICAL: Intact. PSYCHOLOGICAL: Alert. VASCULAR: Legs warm to touch. LABORATORY DATA: White count 4800, hemoglobin 9.7, hematocrit 29.9, platelets 136,000. Sodium 134, K 4.2, chloride 100, bicarb 30, BUN 19, creatinine 0.6, random blood sugar 95. All liver function testing was normal including bilirubin 0.3, AST 34, ALT 24 and alk phos 60. IMPRESSION: A 72-year-old male status post a trip and fall where he sustained a right hip fracture for which he underwent a right hip hemiarthroplasty and has comorbidities of chronic obstructive pulmonary disease, vitamin D deficiency, postoperative anemia, urinary retention postoperatively, chronic hypertension, stable atherosclerotic heart disease and stable cardiomyopathy. PLAN: The plan at present is to continue Colace 100 mg p.o. b.i.d., Drisdol 50,000 International Units weekly, dual nebulizer therapy scheduled every 6, Eliquis 2.5 mg p.o. b.i.d. under the direction of Dr. Falcon from Orthopedics, Fergon 324 mg p.o. t.i.d., Flomax 0.4 mg p.o. daily, Lopressor 12.5 mg b.i.d., morphine 4 mg IV every 4 hours p.r.n. pain, Os-Donald 500 mg p.o. daily, Tylenol 650 p.o. every 6 hours p.r.n. pain or temperature greater than 101 and Zofran 4 mg IV every 6 hours p.r.n. nausea, vomiting. He is scheduled for incentive spirometry every 1 hour, 2 L nasal O2 p.r.n. and a heart-healthy soft bland diet. He is wearing antiembolism stockings. His Reyes discontinuation will be decided by urologist, Dr. Harmeet Motta and he is receiving physical therapy for reconditioning and gait training. Once clinically stabilized, he will be transferred for subacute rehab at the [facility] in [place], [place] with ultimate plan for discharge to home when medically stable. All of the above was discussed in detail with the patient, nursing, physical therapy and Case Management. Greater than 35 minutes was spent in the care, review of labs, orders and outlining of new medication for this patient today as well as answering of all questions and they were all answered. Tiffanie Fuentes MD MTDMono
[2018-02-20 07:30] LABS: MEAN CELL VOLUME 88.6 fl (80.0-105.0); MEAN CORPUSCULAR HEMOGLOBIN 29.4 pg (25.0-35.0); MEAN CORPUSCULAR HGB CONC 33.2 g/dl (31.0-37.0); MEAN PLATELET VOLUME 9.3 fl (7.0-11.0); RBC 3.06 10^6/uL (3.5-6.1); RED CELL DISTRIBUTION WIDTH 11.7 % (11.5-14.5); WHITE BLOOD COUNT 4.4 10^3/ul (4.5-11.0)
[2018-02-20] MEDS: Albuterol-Ipratrop 3 mg / 0.5 (3 ml) UD IH SCH ×2 (08:44→14:25)
[2018-02-20 15:39] VITALS: BP 123/66; PULSE 76; RESP 20; TEMP 98.1; O2SAT 100
--- NOTE | 2018-02-21 10:37 | DS ---
HISTORY OF PRESENT ILLNESS: This 72-year-old male was examined at his bedside in room 572, bed 2 on , 02/20/2018 with discharge diagnoses of right hip fracture and repair, chronic obstructive pulmonary disease, vitamin D deficiency, stable atherosclerotic heart disease, history of urinary retention, degenerative arthritis, chronic hypertension, postoperative anemia. DISPOSITION: [facility]. SEAMLESS TUBE MILL OPERATOR: Dr. Jung Falcon from Orthopedics. PROCEDURE: A right hip repair and replacement. DISCHARGE DIET: Heart healthy. MEDICATIONS: Colace 100 mg b.i.d., Drisdol 50,000 International Units weekly on Saturday, dual nebulizer therapy every 6 hours, Eliquis 2.5 mg p.o. b.i.d., Fergon 324 mg t.i.d., Flomax 0.4 mg p.o. daily, Lopressor 12.5 mg p.o. b.i.d., Tylenol 650 p.o. every 6 hours p.r.n. [id number] pain or fever and Ultracet 1 tablet p.o. b.i.d. p.r.n. severe pain, #60, no refill. SUMMARY: This 72-year-old male who fractured his hip over 1 week ago and continued to walk on it. Presented to the [facility] emergency room late Saturday evening complaining of intractable pain and x-ray workup revealed a displaced right hip fracture. He underwent surgical repair of said fracture and at the time of his transfer to [facility] for his subacute rehab has a temperature of 98.3, respirations 18, pulse 73 and blood pressure 120/62 and pulse ox of 98% on room air. Discharge labs show white count 4400, hemoglobin 9, hematocrit 27.1, platelets 154,000. PT/INR 1, PTT 30.4. Sodium 134, K 4.2, chloride 100, bicarb 30, BUN 19, creatinine 0.6, random blood sugar 95, bilirubin 0.3, AST 34, ALT 24, alk phos 60. Postoperative right hip x-ray shows good alignment and the patient will be transferred to [facility] for correction care and physical and occupational therapy with goals of hopeful discharge to home when medically stable. All of the above was reviewed in detail with the patient, nursing, Case Management, Social Service and the nurses at the [facility]. Tiffanie Fuentes MD
--- NOTE | 2018-02-21 16:16 | CON ---
DATE: 02/19/2018 UROLOGY CONSULTATION Consult was previously dictated, but did not show up in the dictation system. This is a redictation. Please note that the date of the consultation was 02/19/2018. CHIEF COMPLAINT: Lower extremity fracture. HISTORY OF PRESENT ILLNESS: This is a 72-year-old male, who was seen in [facility] status post orthopedic repair of a fractured lower extremity. The patient sustained a right hip fracture on a trip and fall the prior week. He continued to walk on the limb. He presented with intractable pain. He was then taken to the operating room by Dr. Falcon for a hip repair. Postoperatively, the patient was having difficulty voiding. Attempts were made by nursing to place a Reyes catheter, which were unsuccessful. A cardiovascular surgical tech was called, who was able to place a coude Reyes catheter with drainage of approximately 800 mL of reportedly clear urine. A consultation was then requested. The patient is now seen. He is awake and alert and answering questions. He reports prior to this hospitalization, he had mild voiding symptoms. His voiding symptoms consisted of mild daytime frequency with nocturia 1-2 times per night depending on his fluid intake. He denies any prior dysuria or gross hematuria. He is unsure whether he had a recent PSA exam; however, he has not had routine urologic followup. He denies any history of prostate surgery or urethral strictures. A consultation was requested regarding the above. PAST MEDICAL HISTORY: Significant for hip fracture, hypertension, atherosclerotic heart disease, history of congestive heart failure and cardiomyopathy, hyperlipidemia, anxiety neurosis, degenerative arthritis. The patient has not had any continuous medical care in the past 2 years. MEDICATIONS: Currently include Tylenol, morphine, Lopressor, Flomax, iron, Eliquis, Ecotrin, Colace, albuterol inhaler and Drisdol. ALLERGIES: NO KNOWN DRUG ALLERGIES. FAMILY HISTORY: Noncontributory for this event. SOCIAL HISTORY: Positive for smoking. Denies IV drug use or alcohol abuse. REVIEW OF SYSTEMS: The patient is complaining of right hip pain, a little weakness, headache, feeling tired, is complaining of constipation, was having difficulty voiding. Other systems are negative. PHYSICAL EXAMINATION: GENERAL: The patient is awake and alert and answering questions. He does appear to have a psychiatric history, but is currently making sense and answering questions appropriately. VITAL SIGNS: He is afebrile. Temp of 99.9, pulse of 83, BP 120/70, respirations are 20. NECK: Supple. There is no thyromegaly or adenopathy. CHEST: Exam of the chest revealed a normal inspiratory effort. CARDIAC: Shows a positive S1, S2. There is no peripheral edema noted. ABDOMINAL: The abdomen is soft, nontender and nondistended. There is no hepatosplenomegaly. There is no costovertebral angle tenderness. The bladder is not palpable or tender. : Phallus is normal. There is a Reyes catheter in place, which is draining clear-colored urine. Scrotum is normal. Testes bilaterally descended, nontender, no masses. Epididymis are normal. EXTREMITIES: There is no cyanosis or edema noted. LABORATORY EXAM: WBC count 4.8. GFR is greater than 60. Urinalysis showed large blood with too numerous to count RBCs, negative for WBCs or nitrates. It is unclear when this urine was sent from a catheter. On radiologic exam, there are no pertinent urologic imaging noted. IMPRESSION AND PLAN: This is a 72-year-old male with urinary retention after hip surgery. Reyes catheter has been inserted and there was some apparent trauma and difficulty when the Reyes was inserted. The recommendation is the patient should continue the Flomax, which was started yesterday. Reyes catheter should remain in place for a few days until the patient is weightbearing, able to international specialist order to void. Reyes can then be removed for a voiding trial in 3-4 days. I would continue the patient on tamsulosin 0.4 mg daily until after he has recovered. If the patient is voiding well at that time, he would need a urologic followup to reassess his voiding and postvoid residual as well as screening for prostate cancer. The patient has an extensive smoking history as well and has blood in the urine, which may be traumatic, but if it persists, I would recommend an evaluation for microhematuria as well. Thank you for allowing me to participate in the care of this patient. I have discussed these issues with him and he should follow up with either me or another urologist when he has recovered from his hip fracture. Harmeet Motta MD
[2018-03-04] MEDS ORDERED: Aspirin 325 mg EC Tablets PO SCH (10:00)
== END 2018-02-20 18:10 | DRG 470 ==
LOC: ED 17:18 → ERH 21:12 → 5RSO 23:57
PROVIDERS: ADMIT Internal Medicine; ATTEND Internal Medicine
PROC: 3E0F7GC Introduction of Other Therapeutic Substance into Respiratory Tract, Via Natural or Artificial Opening (ICD-10-PCS; 2018-02-16)
PROC: 0SRR0JA Replacement of Right Hip Joint, Femoral Surface with Synthetic Substitute, Uncemented, Open Approach (ICD-10-PCS; principal; 2018-02-17 16:45)
DX: S72.011A Unspecified intracapsular fracture of right femur, initial encounter for closed fracture (principal); I42.9 Cardiomyopathy, unspecified; J44.9 Chronic obstructive pulmonary disease, unspecified; I25.10 Atherosclerotic heart disease of native coronary artery without angina pectoris; R31.0 Gross hematuria; I10 Essential (primary) hypertension; R33.8 Other retention of urine; D64.9 Anemia, unspecified; E78.5 Hyperlipidemia, unspecified; E55.9 Vitamin D deficiency, unspecified; F41.1 Generalized anxiety disorder; M19.90 Unspecified osteoarthritis, unspecified site; F17.210 Nicotine dependence, cigarettes, uncomplicated; W01.0XXA Fall on same level from slipping, tripping and stumbling without subsequent striking against object, initial encounter; Y92.488 Other paved roadways as the place of occurrence of the external cause; Y93.01 Activity, walking, marching and hiking